=== PATIENT | male | born 1940 | race Hispanic/Latino ===

== ENCOUNTER 2017-06-09 15:37 | Emergency (ER) | payer OTHER, MEDICARE ==
[~2017-06-09] VITALS: Ht 182.9 cm; Wt 147.7 kg
[~2017-06-09 15:37] MED LIST: ASCORBIC ACID500 M3 PO; ASPIR-LOW81 MG PO; CELEBREX200 MG PO; CENTRUM SILVER1 EAC3 PO; COUMADIN1 MG PO; FLEXERIL10 MG PO; FOLIC ACID1 MG PO; GLIMEPIRIDE2 MG PO; IRON325 M1 PO; LIPITOR10 MG PO; LOSARTAN-HCTZ1 EAC1 PO; MECLIZINE HCL25 MG PO; METHOCARBAMOL500 MG PO; NORCO 5/3251 TABLET PO; OXYCODONE HCL5 MG PO; OXYCONTIN10 MG PO; POLYETHYLENE GL17 GM PO; POTASSIUM CITR10 MEQ PO; POTASSIUM CITRA5 MEQ PO; PRIMIDONE250 MG PO; SYNTHROID50 MCG PO; TRAMADOL HCL50 MG PO; VISION VITAMIN1 EAC1 PO; WELCHOL625 MG PO
[2017-06-09 16:47] LABS: POINT-OF-CARE METER ID UU13113747
[2017-06-09 17:54] LABS: EOSINOPHIL COUNT 0.2 K/uL (0-0.3); HEMATOCRIT 38.5 % (38.0-50.0); IMMATURE GRANULOCYTE (%) 0.6 % (0.0-0.7); IMMATURE GRANULOCYTE COUNT 0.1 K/uL; INSTRUMENT ABS NEUTROPHIL CT 7.5 K/uL; LYMPHOCYTE COUNT 1.1 K/uL (1.0-2.8); MCH 31.3 PG (29.0-34.0); MCHC 33.8 G/DL (30.0-36.0); MCV 92.8 FL (86-99); MONOCYTE (%) 6.3 % (3-12); MONOCYTE COUNT 0.6 K/uL (0-0.8); NEUTROPHIL (%) 78.9 % (45-76); NEUTROPHIL COUNT 7.5 K/uL (1.8-6.4); PLATELET COUNT 233 K/uL (156-360); RBC DIS.WIDTH-CV 13.2 % (11.8-14.6); RBC DIS.WIDTH-SD 45.1 % (39-53); RED BLOOD COUNT 4.15 M/uL (4.00-5.50); WHITE BLOOD COUNT 9.5 K/uL (4.1-10.2)
[2017-06-09 18:03] LABS: CHLORIDE 97 mEq/L (99-109); POTASSIUM 4.1 mEq/L (3.7-5.4); SODIUM 137 mEq/L (136-147)
[2017-06-09 18:05] LABS: GLUCOSE 123 mg/dL (70-99)
[2017-06-09 18:06] LABS: ANION GAP 10 MEQ/L (2-14)
[2017-06-09 18:07] LABS: TOTAL BILIRUBIN 0.3 mg/dL (0.0-1.0)
[2017-06-09 18:09] LABS: ALKALINE PHOSPHATASE 120 IU/L (3-129); GFR ESTIMATE (CALCULATED) > 59 mL/min/
[2017-06-09 18:10] LABS: UREA NITROGEN (BUN) 18 mg/dL (9-23)
[2017-06-09 18:12] LABS: CREATINE KINASE 49 IU/L (1-294); TOTAL CK 49 IU/L (1-294)
[2017-06-09 18:26] LABS: CK-MB 0.7 ng/mL (0.0-4.9)
[2017-06-09 19:03] LABS: ADD MIUA? NO; BILIRUBIN NEGATIVE; BLOOD NEGATIVE; COLOR YELLOW ((YELLOW)); GLUCOSE (STRIP) NEGATIVE; KETONES NEGATIVE; LEUKOCYTES NEGATIVE; NITRITE NEGATIVE; PROTEIN (STRIP) 30; SPECIFIC GRAVITY 1.023 (1.000-1.030); UCUL ADDED? NO; UROBILINOGEN 0.2 MG/DL (0.2-1.0)
[2017-06-09 21:55] VITALS: BP 157/69
== END 2017-06-09 21:57 | disposition home or self-care (01) ==
LOC: EME 15:37
PROVIDERS: Emergency Medicine
DX: S40.011A Contusion of right shoulder, initial encounter (principal); M62.81 Muscle weakness (generalized); W18.30XA Fall on same level, unspecified, initial encounter; E11.9 Type 2 diabetes mellitus without complications; I12.9 Hypertensive chronic kidney disease with stage 1 through stage 4 chronic kidney disease, or unspecified chronic kidney disease; N18.9 Chronic kidney disease, unspecified; Z96.652 Presence of left artificial knee joint; Z87.442 Personal history of urinary calculi; Z87.891 Personal history of nicotine dependence
CPT/HCPCS: 70450; 72128; 73030; 80053; 81003; 82550; 82553; 82948; 85025; 99281; 99284

== ENCOUNTER 2017-06-15 00:09 | Observation (INO) | payer OTHER, MEDICARE ==
[~2017-06-15] VITALS: Ht 182.9 cm; Wt 147.2 kg
[2017-06-15 00:34] LABS: MCHC 33.6 G/DL (30.0-36.0); MCV 92.2 FL (86-99); MEAN PLAT.VOLUME 8.5 uM^3 (9.0-12.4); PLATELET COUNT 274 K/uL (156-360); RBC DIS.WIDTH-SD 43.7 % (39-53); RED BLOOD COUNT 4.23 M/uL (4.00-5.50); WHITE BLOOD COUNT 11.6 K/uL (4.1-10.2)
[2017-06-15 00:50] LABS: CHLORIDE 95 mEq/L (99-109); POTASSIUM 3.9 mEq/L (3.7-5.4); SODIUM 137 mEq/L (136-147)
[2017-06-15 00:51] LABS: GLUCOSE 127 mg/dL (70-99)
[2017-06-15 00:53] LABS: ANION GAP 13 MEQ/L (2-14); INTER. NORMALIZED RATIO 1.2; PROTHROMBIN TIME 12.8 SEC (10.2-12.9)
[2017-06-15 00:55] LABS: GFR ESTIMATE (CALCULATED) > 59 mL/min/
[2017-06-15 00:56] LABS: ALKALINE PHOSPHATASE 137 IU/L (3-129); UREA NITROGEN (BUN) 17 mg/dL (9-23)
[2017-06-15 00:58] LABS: DIRECT BILIRUBIN 0.2 mg/dL (0.0-0.3)
[2017-06-15 00:59] LABS: LIPASE 16 U/L (1.0-51.0); TOTAL BILIRUBIN 0.4 mg/dL (0.0-1.0)
[2017-06-15 01:02] LABS: TROP-I INTERPRETATION NEGATIVE; TROPONIN-I < 0.01 ng/mL (0.0-0.30)
[2017-06-15] MEDS ORDERED: ZYLOPRIM100 MG PO (02:07)
[2017-06-15] MEDS ORDERED: LO-DOSE ASPIRIN81 M2 PO (02:07)
[2017-06-15] MEDS ORDERED: ULTRAM50 MG PO (02:08)
[2017-06-15 04:41] VITALS: BP 154/69
[2017-06-15 07:05] LABS: HEMATOCRIT 34.8 % (38.0-50.0); MCH 32.4 PG (29.0-34.0); MCHC 35.1 G/DL (30.0-36.0); MCV 92.6 FL (86-99); MEAN PLAT.VOLUME 8.7 uM^3 (9.0-12.4); PLATELET COUNT 237 K/uL (156-360); RBC DIS.WIDTH-CV 13.2 % (11.8-14.6); RBC DIS.WIDTH-SD 44.6 % (39-53); RED BLOOD COUNT 3.76 M/uL (4.00-5.50); WHITE BLOOD COUNT 10.5 K/uL (4.1-10.2)
[2017-06-15 07:29] LABS: ANION GAP 8 MEQ/L (2-14); CHLORIDE 97 MEQ/L (99-109); GFR ESTIMATE (CALCULATED) > 59 mL/min/; GLUCOSE 136 mg/dL (70-99); POTASSIUM 3.6 MEQ/L (3.7-5.4); SAMPLE HEMOLYSIS CHECK 0; SAMPLE ICTERIC CHECK 0; SAMPLE LIPEMIA CHECK 0; SODIUM 136 MEQ/L (136-147); UREA NITROGEN (BUN) 18 mg/dL (9-23)
[2017-06-15 07:34] LABS: TROP-I INTERPRETATION NEGATIVE; TROPONIN-I 0.02 ng/mL (0.0-0.30)
[2017-06-15 07:45] VITALS: BP 139/78
[2017-06-15 12:13] VITALS: BP 143/78
[2017-06-15 13:00] LABS: TROP-I INTERPRETATION NEGATIVE; TROPONIN-I 0.01 ng/mL (0.0-0.30)
[2017-06-15 16:33] VITALS: BP 136/71
[2017-06-15 19:16] LABS: POINT-OF-CARE METER ID UU13113700
[2017-06-15 21:15] VITALS: BP 140/63
[2017-06-15 21:45] LABS: POINT-OF-CARE METER ID UU14162513
[2017-06-16 00:41] VITALS: BP 153/67
[2017-06-16 03:27] VITALS: BP 151/68
[2017-06-16 07:00] VITALS: BP 180/81
[2017-06-16 08:32] LABS: POINT-OF-CARE METER ID UU13113831
[2017-06-16 12:41] VITALS: BP 161/76
[2017-06-16 13:32] LABS: POINT-OF-CARE METER ID UU13113700
[2017-06-16 16:40] VITALS: BP 148/68
[2017-06-16 17:13] LABS: POINT-OF-CARE METER ID UU13113700
== END 2017-06-16 21:04 | disposition home or self-care (01) ==
LOC: EME → EDBD 00:09 → EME 00:09 → EDOF 01:49 → 5WEST 01:49 → EDOF 01:49 → ENRESERV 01:52 → 5WEST 03:49
PROVIDERS: Internal Medicine
DX: R07.9 Chest pain, unspecified (principal); I48.0 Paroxysmal atrial fibrillation; Z79.82 Long term (current) use of aspirin; R26.2 Difficulty in walking, not elsewhere classified; I12.9 Hypertensive chronic kidney disease with stage 1 through stage 4 chronic kidney disease, or unspecified chronic kidney disease; E11.22 Type 2 diabetes mellitus with diabetic chronic kidney disease; N18.9 Chronic kidney disease, unspecified; E78.5 Hyperlipidemia, unspecified; E03.9 Hypothyroidism, unspecified; Z79.84 Long term (current) use of oral hypoglycemic drugs; Z90.49 Acquired absence of other specified parts of digestive tract; Z96.652 Presence of left artificial knee joint; Z87.891 Personal history of nicotine dependence; F32.9 Major depressive disorder, single episode, unspecified; R53.1 Weakness; R06.02 Shortness of breath; D72.829 Elevated white blood cell count, unspecified; Z63.8 Other specified problems related to primary support group
CPT/HCPCS: 71010; 80048; 80048 91; 80076; 82948; 83690; 83880; 84484; 85027; 85610; 85730; 93005; 94640; 99281; 99285; G0378; G8978 GP CM; G8979 CJ; G8987 CK; G8988 GO CJ; J1644; J7030

== ENCOUNTER 2017-06-19 12:58 | Inpatient (IN) | payer OTHER, MEDICARE ==
[~2017-06-19] VITALS: Ht 182.9 cm; Wt 152.7 kg
[~2017-06-19 12:58] MED LIST changes: +LO-DOSE ASPIRIN81 M2 PO; +ULTRAM50 MG PO; +ZYLOPRIM100 MG PO
[2017-06-19 20:25] LABS: HEMATOCRIT 37.7 % (38.0-50.0); MCH 30.8 PG (29.0-34.0); MCHC 32.6 G/DL (30.0-36.0); MCV 94.3 FL (86-99); MEAN PLAT.VOLUME 8.7 uM^3 (9.0-12.4); PLATELET COUNT 292 K/uL (156-360); RBC DIS.WIDTH-CV 13.2 % (11.8-14.6); RBC DIS.WIDTH-SD 45.6 % (39-53); WHITE BLOOD COUNT 12.2 K/uL (4.1-10.2)
[2017-06-19 20:34] LABS: CHLORIDE 98 mEq/L (99-109); SODIUM 138 mEq/L (136-147)
[2017-06-19 20:36] LABS: GLUCOSE 123 mg/dL (70-99)
[2017-06-19 20:38] LABS: ANION GAP 11 MEQ/L (2-14)
[2017-06-19 20:39] VITALS: BP 140/63
[2017-06-19 20:40] LABS: GFR ESTIMATE (CALCULATED) > 59 mL/min/
[2017-06-19 20:41] LABS: UREA NITROGEN (BUN) 25 mg/dL (9-23)
[2017-06-19 21:47] LABS: POINT-OF-CARE METER ID UU14162513
[2017-06-20 00:12] VITALS: BP 115/62
[2017-06-20 04:33] VITALS: BP 116/65
[2017-06-20 08:11] LABS: POINT-OF-CARE METER ID UU13113831
[2017-06-20 08:16] VITALS: BP 126/62
[2017-06-20 11:27] VITALS: BP 127/56
[2017-06-20 12:58] LABS: POINT-OF-CARE METER ID UU13113700
[2017-06-20 16:10] VITALS: BP 108/58
[2017-06-20 17:34] LABS: POINT-OF-CARE METER ID UU13113831
[2017-06-20 21:48] LABS: POINT-OF-CARE METER ID UU13113700
[2017-06-21] VITALS (8 sets, daily range): BP systolic 113–158; BP diastolic 60–91
[2017-06-21 08:45] LABS: POINT-OF-CARE METER ID UU13113831
[2017-06-21 12:58] LABS: POINT-OF-CARE METER ID UU13113831
[2017-06-21 17:19] LABS: POINT-OF-CARE METER ID UU14188577
[2017-06-21 21:31] LABS: POINT-OF-CARE METER ID UU14188577
[2017-06-22 04:51] VITALS: BP 144/73
[2017-06-22 06:40] LABS: POINT-OF-CARE METER ID UU14208753
[2017-06-22 07:39] VITALS: BP 135/65
[2017-06-22 11:12] LABS: HEMATOCRIT 37.4 % (38.0-50.0); MCH 30.7 PG (29.0-34.0); MCHC 32.9 G/DL (30.0-36.0); MCV 93.3 FL (86-99); MEAN PLAT.VOLUME 8.7 uM^3 (9.0-12.4); PLATELET COUNT 325 K/uL (156-360); RBC DIS.WIDTH-CV 13.1 % (11.8-14.6); RBC DIS.WIDTH-SD 44.9 % (39-53); RED BLOOD COUNT 4.01 M/uL (4.00-5.50); WHITE BLOOD COUNT 9.3 K/uL (4.1-10.2)
[2017-06-22 11:20] LABS: INTER. NORMALIZED RATIO 1.1
[2017-06-22 11:38] LABS: ALKALINE PHOSPHATASE 152 IU/L (3-129); ANION GAP 9 MEQ/L (2-14); CHLORIDE 96 MEQ/L (99-109); GFR ESTIMATE (CALCULATED) > 59 mL/min/; POTASSIUM 4.6 MEQ/L (3.7-5.4); SAMPLE HEMOLYSIS CHECK 0; SAMPLE ICTERIC CHECK 0; SAMPLE LIPEMIA CHECK 0; SODIUM 134 MEQ/L (136-147); TOTAL BILIRUBIN 0.2 MG/DL (0.0-1.0); UREA NITROGEN (BUN) 27 mg/dL (9-23)
[2017-06-22 11:39] LABS: GLUCOSE 193 mg/dL (70-99)
[2017-06-22 16:22] VITALS: BP 137/65
[2017-06-22 16:34] LABS: POINT-OF-CARE METER ID UU14208753
[2017-06-22 23:13] VITALS: BP 127/67
[2017-06-23 06:14] LABS: BASOPHIL COUNT 0.1 K/uL (0-0.1); EOSINOPHIL (%) 2.8 % (0-5); EOSINOPHIL COUNT 0.3 K/uL (0-0.3); HEMATOCRIT 36.9 % (38.0-50.0); IMMATURE GRANULOCYTE (%) 0.5 % (0.0-0.7); IMMATURE GRANULOCYTE COUNT 0.1 K/uL; INSTRUMENT ABS NEUTROPHIL CT 7.2 K/uL; LYMPHOCYTE COUNT 1.3 K/uL (1.0-2.8); MCH 30.6 PG (29.0-34.0); MCHC 32.8 G/DL (30.0-36.0); MCV 93.2 FL (86-99); MONOCYTE (%) 7.4 % (3-12); MONOCYTE COUNT 0.7 K/uL (0-0.8); NEUTROPHIL (%) 75.3 % (45-76); NEUTROPHIL COUNT 7.2 K/uL (1.8-6.4); PLATELET COUNT 321 K/uL (156-360); RBC DIS.WIDTH-CV 13.1 % (11.8-14.6); RBC DIS.WIDTH-SD 45.1 % (39-53); RED BLOOD COUNT 3.96 M/uL (4.00-5.50); WHITE BLOOD COUNT 9.6 K/uL (4.1-10.2)
[2017-06-23 06:21] LABS: POINT-OF-CARE METER ID UU14117124
[2017-06-23 06:28] LABS: INTER. NORMALIZED RATIO 1.2; PROTHROMBIN TIME 13.2 SEC (10.2-12.9)
[2017-06-23 06:34] LABS: ANION GAP 11 MEQ/L (2-14); CHLORIDE 97 MEQ/L (99-109); GFR ESTIMATE (CALCULATED) > 59 mL/min/; GLUCOSE 127 mg/dL (70-99); POTASSIUM 4.5 MEQ/L (3.7-5.4); SAMPLE HEMOLYSIS CHECK 0; SAMPLE ICTERIC CHECK 0; SAMPLE LIPEMIA CHECK 0; SODIUM 135 MEQ/L (136-147); UREA NITROGEN (BUN) 27 mg/dL (9-23)
[2017-06-23 07:16] VITALS: BP 125/76
[2017-06-23 11:19] LABS: POINT-OF-CARE METER ID UU14188577
[2017-06-23 15:47] VITALS: BP 123/60
[2017-06-23 16:29] LABS: POINT-OF-CARE METER ID UU14188577
[2017-06-23 23:50] VITALS: BP 142/77
[2017-06-24 06:58] LABS: INTER. NORMALIZED RATIO 1.2; PROTHROMBIN TIME 13.8 SEC (10.2-12.9)
[2017-06-24 07:26] VITALS: BP 124/60
[2017-06-24 11:18] LABS: POINT-OF-CARE METER ID UU14188577
[2017-06-24] MEDS ORDERED: LOVENOX150 MG/1 M SC (11:36)
[2017-06-24] MEDS ORDERED: COUMADIN5 MG PO (11:37)
[2017-06-24] MEDS ORDERED: ANTIVERT25 MG PO (11:37)
[2017-06-24] MEDS ORDERED: ULTRAM50 MG PO (11:38)
[2017-06-24] MEDS ORDERED: ENDOCET 5-3251 EACH PO (11:38)
[2017-06-24 15:28] VITALS: BP 136/68
[2017-06-24 16:39] LABS: POINT-OF-CARE METER ID UU14188577
[2017-06-24 19:28] VITALS: BP 135/79
== END 2017-06-24 20:15 | DRG 300 ==
LOC: EME 12:58 → EDOF 19:36 → ENRESERV 19:37 → 5WEST 20:26 → 3EAST 06-20 10:29 → 5WEST 06-20 10:29 → CANRESERV 06-21 08:14 → ENRESERV 06-21 08:14 → 3EAST 06-21 14:40
PROVIDERS: Hospitalist
DX: I82.431 Acute embolism and thrombosis of right popliteal vein (principal); I82.441 Acute embolism and thrombosis of right tibial vein; E11.22 Type 2 diabetes mellitus with diabetic chronic kidney disease; N18.9 Chronic kidney disease, unspecified; I12.9 Hypertensive chronic kidney disease with stage 1 through stage 4 chronic kidney disease, or unspecified chronic kidney disease; I48.0 Paroxysmal atrial fibrillation; E78.5 Hyperlipidemia, unspecified; E03.9 Hypothyroidism, unspecified; G89.29 Other chronic pain; M17.11 Unilateral primary osteoarthritis, right knee; G25.0 Essential tremor; K59.09 Other constipation; E66.01 Morbid (severe) obesity due to excess calories; F43.20 Adjustment disorder, unspecified; F32.9 Major depressive disorder, single episode, unspecified; Z68.42 Body mass index [BMI] 45.0-49.9, adult; Z82.49 Family history of ischemic heart disease and other diseases of the circulatory system; Z87.891 Personal history of nicotine dependence; Z96.652 Presence of left artificial knee joint
CPT/HCPCS: 71275; 73564; 80048; 80053; 82607; 82948; 85025; 85027; 85610; 93970; 97530 GP; 99281; 99284; G0378; J1644; J1650; J1815; J1885; J2270

== ENCOUNTER 2017-10-03 12:05 | Inpatient (IN) | payer OTHER, MEDICARE ==
[~2017-10-03] VITALS: Ht 182.9 cm; Wt 149.0 kg
[~2017-10-03 12:05] MED LIST changes: +ANTIVERT25 MG PO; +COUMADIN5 MG PO; +ENDOCET 5-3251 EACH PO; +LOVENOX150 MG/1 M SC
[2017-10-03 14:33] LABS: HEMATOCRIT 41.2 % (38.0-50.0); HEMOGLOBIN 13.7 G/DL (12.5-16.6); MCH 31.6 PG (29.0-34.0); MCHC 33.3 G/DL (30.0-36.0); MCV 95.2 FL (86-99); PLATELET COUNT 242 K/uL (156-360); RBC DIS.WIDTH-CV 13.9 % (11.8-14.6); RBC DIS.WIDTH-SD 48.7 % (39-53); RED BLOOD COUNT 4.33 M/uL (4.00-5.50); WHITE BLOOD COUNT 15.8 K/uL (4.1-10.2)
[2017-10-03 14:43] LABS: ALBUMIN 3.5 g/dL (3.2-4.8); CHLORIDE 99 mEq/L (99-109); POTASSIUM 4.1 mEq/L (3.7-5.4); SODIUM 139 mEq/L (136-147)
[2017-10-03 14:45] LABS: GLUCOSE 142 mg/dL (70-99)
[2017-10-03 14:47] LABS: TOTAL BILIRUBIN 0.5 mg/dL (0.0-1.0)
[2017-10-03 14:49] LABS: ALKALINE PHOSPHATASE 102 IU/L (3-129); CREATININE 0.8 mg/dL (0.6-1.3); GFR ESTIMATE (CALCULATED) > 59 mL/min/ (58.99-99999)
[2017-10-03 14:50] LABS: UREA NITROGEN (BUN) 20 mg/dL (9-23)
[2017-10-03 14:51] LABS: AST (GOT) 18 IU/L (2-34)
[2017-10-03 14:52] LABS: ALT (GPT) 37 IU/L (3-49); CREATINE KINASE 97 IU/L (1-294)
[2017-10-03 14:55] LABS: TROP-I INTERPRETATION NEGATIVE; TROPONIN-I 0.01 ng/mL (0.0-0.30)
[2017-10-03 20:25] LABS: C-REACTIVE PROTEIN 142.7 MG/L (0-10)
[2017-10-03 21:45] VITALS: BP 178/89
[2017-10-04 00:05] VITALS: BP 143/64
[2017-10-04 03:55] VITALS: BP 135/74
[2017-10-04 05:25] LABS: APPEARANCE CLEAR ((CLEAR)); BILIRUBIN NEGATIVE; BLOOD SMALL; COLOR YELLOW ((YELLOW)); GLUCOSE (STRIP) NEGATIVE; KETONES NEGATIVE; LEUKOCYTES NEGATIVE; NITRITE NEGATIVE; PROTEIN (STRIP) NEGATIVE; SPECIFIC GRAVITY 1.026 (1.000-1.030); UROBILINOGEN 0.2 MG/DL (0.2-1.0)
[2017-10-04 05:27] LABS: BACTERIA NONE SEEN /HPF; EPITHELIAL CELLS RARE /HPF; MUCUS TRACE /LPF; RED BLOOD CELLS 0-5 /HPF (0-5); WHITE BLOOD CELLS 0-5 /HPF (0-5)
[2017-10-04 06:49] LABS: BASOPHIL (%) 0.4 % (0-1); BASOPHIL COUNT 0.1 K/uL (0-0.1); EOSINOPHIL (%) 2.2 % (0-5); EOSINOPHIL COUNT 0.3 K/uL (0-0.3); HEMATOCRIT 38.4 % (38.0-50.0); HEMOGLOBIN 12.4 G/DL (12.5-16.6); IMMATURE GRANULOCYTE (%) 0.7 % (0.0-0.7); LYMPHOCYTE (%) 10.6 % (15-42); LYMPHOCYTE COUNT 1.3 K/uL (1.0-2.8); MCH 30.8 PG (29.0-34.0); MCHC 32.3 G/DL (30.0-36.0); MCV 95.5 FL (86-99); MONOCYTE COUNT 1.1 K/uL (0-0.8); NEUTROPHIL (%) 77.1 % (45-76); NEUTROPHIL COUNT 9.5 K/uL (1.8-6.4); PLATELET COUNT 247 K/uL (156-360); RBC DIS.WIDTH-CV 13.9 % (11.8-14.6); RBC DIS.WIDTH-SD 49.1 % (39-53); RED BLOOD COUNT 4.02 M/uL (4.00-5.50); WHITE BLOOD COUNT 12.3 K/uL (4.1-10.2)
[2017-10-04 07:15] LABS: CHLORIDE 101 MEQ/L (99-109); CREATININE 0.9 MG/DL (0.6-1.3); GFR ESTIMATE (CALCULATED) > 59 mL/min/ (58.99-99999); GLUCOSE 143 mg/dL (70-99); POTASSIUM 3.9 MEQ/L (3.7-5.4); SODIUM 140 MEQ/L (136-147); UREA NITROGEN (BUN) 20 mg/dL (9-23)
[2017-10-04 07:55] VITALS: BP 140/70
[2017-10-04 10:28] LABS: INTER. NORMALIZED RATIO 1.3
[2017-10-04 11:48] VITALS: BP 144/81
[2017-10-04 16:14] VITALS: BP 147/75
[2017-10-04 19:09] LABS: APPEARANCE CLOUDY-BLOODY; MONONUCLEAR WBC'S 16 %; POLYNUCLEAR WBC'S 84 % (0-25); RED CELL COUNT 133000 /MM^3 (0-1); SYNOVIAL FLUID EOSINOPHILS 0 % (0-25); WHITE CELL COUNT 12456 /MM^3 (0-200.0)
[2017-10-04 19:38] VITALS: BP 164/76
[2017-10-05 00:29] VITALS: BP 144/68
[2017-10-05 03:34] VITALS: BP 140/66
[2017-10-05 06:33] LABS: HEMOGLOBIN 11.7 G/DL (12.5-16.6); MCH 31.6 PG (29.0-34.0); MCHC 32.5 G/DL (30.0-36.0); MCV 97.3 FL (86-99); PLATELET COUNT 211 K/uL (156-360); RBC DIS.WIDTH-CV 13.8 % (11.8-14.6); RBC DIS.WIDTH-SD 49.5 % (39-53); WHITE BLOOD COUNT 10.5 K/uL (4.1-10.2)
[2017-10-05 06:35] LABS: INTER. NORMALIZED RATIO 1.3
[2017-10-05 06:57] LABS: CHLORIDE 101 MEQ/L (99-109); CREATININE 0.8 MG/DL (0.6-1.3); GFR ESTIMATE (CALCULATED) > 59 mL/min/ (58.99-99999); GLUCOSE 125 mg/dL (70-99); SODIUM 138 MEQ/L (136-147); UREA NITROGEN (BUN) 23 mg/dL (9-23)
[2017-10-05 06:59] LABS: CRYSTALS NO CRYSTALS SEEN
[2017-10-05 08:14] VITALS: BP 143/67
[2017-10-05 12:10] VITALS: BP 153/70
[2017-10-05] MEDS ORDERED: AMITIZA24 MICROGR PO (14:03)
[2017-10-05] MEDS ORDERED: ELIQUIS5 MG PO (14:04)
[2017-10-05] MEDS ORDERED: SKIN TREATMENT225 GM TP (14:05)
[2017-10-05] MEDS ORDERED: LASIX20 MG PO (14:06)
[2017-10-05] MEDS ORDERED: MIRALAX17 GM PO (14:07)
[2017-10-05] MEDS ORDERED: LIDOCARE1 EACH TP (14:07)
[2017-10-05] MEDS ORDERED: ZANTAC75 M1 PO (14:08)
[2017-10-05] MEDS ORDERED: WELLBUTRIN75 MG PO (14:09)
[2017-10-05] MEDS ORDERED: SENNA PLUS TAB1 EACH PO (14:09)
[2017-10-05 15:58] VITALS: BP 127/74
[2017-10-05 20:24] VITALS: BP 148/71
[2017-10-06] VITALS (7 sets, daily range): BP systolic 129–163; BP diastolic 69–78
[2017-10-06 06:50] LABS: HEMATOCRIT 36.6 % (38.0-50.0); HEMOGLOBIN 11.8 G/DL (12.5-16.6); MCH 30.8 PG (29.0-34.0); MCHC 32.2 G/DL (30.0-36.0); MCV 95.6 FL (86-99); PLATELET COUNT 209 K/uL (156-360); RBC DIS.WIDTH-CV 13.3 % (11.8-14.6); RBC DIS.WIDTH-SD 47.3 % (39-53); RED BLOOD COUNT 3.83 M/uL (4.00-5.50); WHITE BLOOD COUNT 9.1 K/uL (4.1-10.2)
[2017-10-06 06:57] LABS: INTER. NORMALIZED RATIO 1.3
[2017-10-06] MEDS ORDERED: ELIQUIS5 MG PO (09:07)
[2017-10-07 04:29] VITALS: BP 144/71
[2017-10-07 07:55] VITALS: BP 153/89
[2017-10-07 12:04] VITALS: BP 148/85
[2017-10-07 16:44] VITALS: BP 138/74
[2017-10-07 19:19] VITALS: BP 134/73
[2017-10-08] VITALS (7 sets, daily range): BP systolic 124–169; BP diastolic 68–87
[2017-10-09 04:42] VITALS: BP 142/80
[2017-10-09 07:19] VITALS: BP 173/84
[2017-10-09 12:56] VITALS: BP 160/80
[2017-10-09 16:13] VITALS: BP 141/69
[2017-10-09 19:53] VITALS: BP 135/74
[2017-10-09 23:28] VITALS: BP 155/71
[2017-10-10 03:31] VITALS: BP 145/69
[2017-10-10 07:02] VITALS: BP 132/70
[2017-10-10 15:02] VITALS: BP 144/81
[2017-10-11 00:19] VITALS: BP 140/67
[2017-10-11 07:31] VITALS: BP 157/86
[2017-10-11 17:23] VITALS: BP 148/66
[2017-10-11 23:32] VITALS: BP 132/77
[2017-10-12 07:37] VITALS: BP 145/68
== END 2017-10-12 15:20 | disposition home health service (06) | DRG 603 ==
LOC: EME 12:05 → 5SOUTH 18:48 → EDOF 18:48 → ENRESERV 18:49 → 5SOUTH 21:14 → ENPENDDIS 10-12 → 5SOUTH 10-12 15:20
PROVIDERS: Emergency Medicine; Hospitalist; Internal Medicine; Nurse Practitioner Adult Health; Orthopaedic Surgery Sports Medicine; Physician Assistant Medical
PROC: 0S9C3ZX Drainage of Right Knee Joint, Percutaneous Approach, Diagnostic (ICD-10-PCS; principal; 2017-10-04)
DX: L03.115 Cellulitis of right lower limb (principal); M25.061 Hemarthrosis, right knee; L03.116 Cellulitis of left lower limb; L89.319 Pressure ulcer of right buttock, unspecified stage; M17.0 Bilateral primary osteoarthritis of knee; I89.0 Lymphedema, not elsewhere classified; Z68.41 Body mass index [BMI] 40.0-44.9, adult; N18.1 Chronic kidney disease, stage 1; L97.529 Non-pressure chronic ulcer of other part of left foot with unspecified severity; E66.01 Morbid (severe) obesity due to excess calories; E11.621 Type 2 diabetes mellitus with foot ulcer; I12.9 Hypertensive chronic kidney disease with stage 1 through stage 4 chronic kidney disease, or unspecified chronic kidney disease; E03.9 Hypothyroidism, unspecified; E78.5 Hyperlipidemia, unspecified; I48.92 Unspecified atrial flutter; E11.22 Type 2 diabetes mellitus with diabetic chronic kidney disease; I87.2 Venous insufficiency (chronic) (peripheral); E78.00 Pure hypercholesterolemia, unspecified; M10.9 Gout, unspecified; G25.0 Essential tremor; Z79.01 Long term (current) use of anticoagulants; Z90.49 Acquired absence of other specified parts of digestive tract; Z96.652 Presence of left artificial knee joint; Z86.718 Personal history of other venous thrombosis and embolism; Z91.19 Patient's noncompliance with other medical treatment and regimen; Z79.84 Long term (current) use of oral hypoglycemic drugs; G89.29 Other chronic pain; Z87.891 Personal history of nicotine dependence; Z87.442 Personal history of urinary calculi; Z82.49 Family history of ischemic heart disease and other diseases of the circulatory system; Z81.1 Family history of alcohol abuse and dependence
CPT/HCPCS: 73560; 73700; 80048; 80053; 81003; 82550; 82948; 83036; 84484; 84550; 85025; 85027; 85610; 85651; 86140; 87040; 87070; 87075; 87205; 89051; 89060; 90686; 93970; 94799; 99281; 99285; J0690; J1650; J1815; J2405; J2543; J3010; J3370; J7060

== ENCOUNTER 2017-10-15 13:09 | Observation (INO) | payer OTHER, MEDICARE ==
[~2017-10-15] VITALS: Ht 182.9 cm; Wt 147.4 kg
[~2017-10-15 13:09] MED LIST changes: +AMITIZA24 MICROGR PO; +ELIQUIS5 MG PO; +LASIX20 MG PO; +LIDOCARE1 EACH TP; +MIRALAX17 GM PO; +SENNA PLUS TAB1 EACH PO; +SKIN TREATMENT225 GM TP; +WELLBUTRIN75 MG PO; +ZANTAC75 M1 PO
[2017-10-15 19:26] LABS: HEMATOCRIT 39.1 % (38.0-50.0); HEMOGLOBIN 12.8 G/DL (12.5-16.6); MCH 31.3 PG (29.0-34.0); MCHC 32.7 G/DL (30.0-36.0); MCV 95.6 FL (86-99); PLATELET COUNT 239 K/uL (156-360); RBC DIS.WIDTH-CV 13.1 % (11.8-14.6); RBC DIS.WIDTH-SD 46.1 % (39-53); RED BLOOD COUNT 4.09 M/uL (4.00-5.50); WHITE BLOOD COUNT 12.6 K/uL (4.1-10.2)
[2017-10-15 19:37] LABS: CHLORIDE 104 mEq/L (99-109); POTASSIUM 4.3 mEq/L (3.7-5.4); SODIUM 137 mEq/L (136-147)
[2017-10-15] MEDS ORDERED: ENDOCET 5-3251 EACH PO (19:37)
[2017-10-15 19:39] LABS: GLUCOSE 91 mg/dL (70-99)
[2017-10-15 19:43] LABS: CREATININE 0.8 mg/dL (0.6-1.3); GFR ESTIMATE (CALCULATED) > 59 mL/min/ (58.99-99999)
[2017-10-15 19:44] LABS: UREA NITROGEN (BUN) 20 mg/dL (9-23)
[2017-10-15 22:07] LABS: APPEARANCE CLEAR ((CLEAR)); BILIRUBIN NEGATIVE; BLOOD NEGATIVE; COLOR YELLOW ((YELLOW)); GLUCOSE (STRIP) NEGATIVE; KETONES NEGATIVE; LEUKOCYTES NEGATIVE; NITRITE NEGATIVE; PROTEIN (STRIP) NEGATIVE; SPECIFIC GRAVITY 1.025 (1.000-1.030); UCUL ADDED? NO; UROBILINOGEN 0.2 MG/DL (0.2-1.0)
[2017-10-15 22:23] VITALS: BP 167/78
[2017-10-16 08:17] VITALS: BP 177/86
[2017-10-16 11:46] VITALS: BP 140/76
[2017-10-16 15:13] VITALS: BP 129/75
[2017-10-16 15:57] LABS: INTER. NORMALIZED RATIO 1.2
[2017-10-16 19:45] VITALS: BP 124/67
[2017-10-17 00:43] VITALS: BP 116/57
[2017-10-17 06:31] LABS: INTER. NORMALIZED RATIO 1.1
[2017-10-17 08:00] VITALS: BP 131/63
[2017-10-17] MEDS ORDERED: DOCUSATE SODIU100 MG PO (09:41)
[2017-10-17] MEDS ORDERED: LOVENOX150 MG/1 M SC (09:42)
[2017-10-17 11:25] VITALS: BP 135/74
[2017-10-17 15:17] VITALS: BP 130/63
[2017-10-17 19:22] VITALS: BP 128/63
[2017-10-18 00:16] VITALS: BP 118/56
[2017-10-18 05:20] LABS: INTER. NORMALIZED RATIO 1.2
[2017-10-18 08:00] VITALS: BP 132/65
[2017-10-18 11:20] VITALS: BP 143/68
[2017-10-18] MEDS ORDERED: COUMADIN5 MG PO (15:21)
== END 2017-10-18 18:56 ==
LOC: EME 13:09 → EDOF 20:18 → 5WEST 20:18 → EDOF 20:18 → ENRESERV 20:35 → 5WEST 22:08 → ENPENDDIS 10-18 → 5WEST 10-18 18:56
PROVIDERS: Emergency Medicine; Internal Medicine
DX: G89.29 Other chronic pain (principal); M17.11 Unilateral primary osteoarthritis, right knee; R26.89 Other abnormalities of gait and mobility; Z74.01 Bed confinement status; E66.01 Morbid (severe) obesity due to excess calories; I48.92 Unspecified atrial flutter; Z86.718 Personal history of other venous thrombosis and embolism; Z79.01 Long term (current) use of anticoagulants; Z91.14 Patient's other noncompliance with medication regimen; Z91.19 Patient's noncompliance with other medical treatment and regimen; Z86.19 Personal history of other infectious and parasitic diseases; M10.9 Gout, unspecified; I10 Essential (primary) hypertension; E78.5 Hyperlipidemia, unspecified; E03.9 Hypothyroidism, unspecified; E11.9 Type 2 diabetes mellitus without complications; Z96.652 Presence of left artificial knee joint; Z90.49 Acquired absence of other specified parts of digestive tract; Z87.891 Personal history of nicotine dependence
CPT/HCPCS: 73560; 80048; 81003; 85027; 85610; 85651; 86140; 97530 GP; 99281; 99285; G0378; G8978 GP CM; G8979 GP CL; G8980 GP CM; G8987 GO CM; G8988 GO CL; G8989 GO CM; J1644; J1650; J2270

== ENCOUNTER 2017-11-08 17:57 | Emergency (ER) | payer OTHER, MEDICARE ==
[~2017-11-08] VITALS: Ht 182.9 cm; Wt 144.8 kg
[~2017-11-08 17:57] MED LIST changes: +DOCUSATE SODIU100 MG PO
[2017-11-08] MEDS ORDERED: NORCO 5/3251 TABLET PO (19:01)
[2017-11-08 22:20] VITALS: BP 132/74
== END 2017-11-08 22:22 | disposition home or self-care (01) ==
LOC: EME 17:57
DX: E11.40 Type 2 diabetes mellitus with diabetic neuropathy, unspecified (principal); M79.604 Pain in right leg; I87.2 Venous insufficiency (chronic) (peripheral); E11.22 Type 2 diabetes mellitus with diabetic chronic kidney disease; I12.9 Hypertensive chronic kidney disease with stage 1 through stage 4 chronic kidney disease, or unspecified chronic kidney disease; N18.9 Chronic kidney disease, unspecified; F32.9 Major depressive disorder, single episode, unspecified; F41.9 Anxiety disorder, unspecified; Z87.891 Personal history of nicotine dependence; Z87.442 Personal history of urinary calculi; Z96.653 Presence of artificial knee joint, bilateral; Z90.49 Acquired absence of other specified parts of digestive tract; Z79.84 Long term (current) use of oral hypoglycemic drugs; Z79.82 Long term (current) use of aspirin
CPT/HCPCS: 93971

== ENCOUNTER 2017-11-22 11:43 | Emergency (ER) | payer OTHER, MEDICARE ==
[~2017-11-22] VITALS: Ht 182.9 cm; Wt 143.0 kg
[2017-11-22 12:58] LABS: BASOPHIL (%) 0.3 % (0-1); BASOPHIL COUNT 0.1 K/uL (0-0.1); EOSINOPHIL (%) 1.5 % (0-5); EOSINOPHIL COUNT 0.2 K/uL (0-0.3); HEMOGLOBIN 13.3 G/DL (12.5-16.6); IMMATURE GRANULOCYTE (%) 0.7 % (0.0-0.7); LYMPHOCYTE (%) 6.3 % (15-42); LYMPHOCYTE COUNT 0.9 K/uL (1.0-2.8); MCHC 33.3 G/DL (30.0-36.0); MCV 93.2 FL (86-99); MONOCYTE (%) 6.2 % (3-12); MONOCYTE COUNT 0.9 K/uL (0-0.8); NEUTROPHIL COUNT 12.5 K/uL (1.8-6.4); PLATELET COUNT 233 K/uL (156-360); RBC DIS.WIDTH-CV 13.5 % (11.8-14.6); RBC DIS.WIDTH-SD 46.4 % (39-53); RED BLOOD COUNT 4.29 M/uL (4.00-5.50); WHITE BLOOD COUNT 14.7 K/uL (4.1-10.2)
[2017-11-22 13:12] LABS: ALBUMIN 3.9 g/dL (3.2-4.8); CHLORIDE 96 mEq/L (99-109); SODIUM 135 mEq/L (136-147)
[2017-11-22 13:14] LABS: GLUCOSE 112 mg/dL (70-99)
[2017-11-22 13:16] LABS: TOTAL BILIRUBIN 0.3 mg/dL (0.0-1.0)
[2017-11-22 13:18] LABS: ALKALINE PHOSPHATASE 139 IU/L (3-129); CREATININE 0.8 mg/dL (0.6-1.3); GFR ESTIMATE (CALCULATED) > 59 mL/min/ (58.99-99999)
[2017-11-22 13:19] LABS: UREA NITROGEN (BUN) 21 mg/dL (9-23)
[2017-11-22 13:20] LABS: AST (GOT) 21 IU/L (2-34)
[2017-11-22 13:21] LABS: ALT (GPT) 41 IU/L (3-49); LIPASE 248 U/L (1.0-51.0)
[2017-11-22 14:54] LABS: APPEARANCE CLEAR ((CLEAR)); BILIRUBIN NEGATIVE; BLOOD SMALL; COLOR STRAW ((YELLOW)); GLUCOSE (STRIP) NEGATIVE; KETONES NEGATIVE; LEUKOCYTES NEGATIVE; NITRITE NEGATIVE; PROTEIN (STRIP) NEGATIVE; UROBILINOGEN 0.2 MG/DL (0.2-1.0)
[2017-11-22 14:58] LABS: BACTERIA NONE SEEN /HPF; EPITHELIAL CELLS RARE /HPF; MUCUS TRACE /LPF; RED BLOOD CELLS 0-5 /HPF (0-5); UCUL ADDED? NO; WHITE BLOOD CELLS 0-5 /HPF (0-5)
[2017-11-22 15:13] LABS: SPECIFIC GRAVITY 1.062 (1.000-1.030)
[2017-11-22] MEDS ORDERED: LORTAB 5-325 M1 EACH PO (15:18)
[2017-11-22 20:49] VITALS: BP 119/62
== END 2017-11-22 20:50 | disposition home or self-care (01) ==
LOC: EME 11:43
PROVIDERS: Emergency Medicine
DX: R10.31 Right lower quadrant pain (principal); E11.65 Type 2 diabetes mellitus with hyperglycemia; N28.89 Other specified disorders of kidney and ureter; I12.9 Hypertensive chronic kidney disease with stage 1 through stage 4 chronic kidney disease, or unspecified chronic kidney disease; E11.22 Type 2 diabetes mellitus with diabetic chronic kidney disease; N18.9 Chronic kidney disease, unspecified; F32.9 Major depressive disorder, single episode, unspecified; F41.9 Anxiety disorder, unspecified; Z96.652 Presence of left artificial knee joint; Z79.82 Long term (current) use of aspirin; Z87.891 Personal history of nicotine dependence; Z87.442 Personal history of urinary calculi; Z90.49 Acquired absence of other specified parts of digestive tract
CPT/HCPCS: 74177; 80053; 81003; 82948; 83605; 83690; 85025; 99281; 99285; J2405; J3010; J7030

== ENCOUNTER 2017-11-27 15:01 | Emergency (ER) | payer OTHER, MEDICARE ==
[~2017-11-27] VITALS: Ht 182.9 cm; Wt 144.5 kg
[~2017-11-27 15:01] MED LIST changes: +LORTAB 5-325 M1 EACH PO
[2017-11-27 15:49] LABS: BASOPHIL (%) 0.2 % (0-1); EOSINOPHIL (%) 1.4 % (0-5); EOSINOPHIL COUNT 0.2 K/uL (0-0.3); IMMATURE GRANULOCYTE (%) 0.7 % (0.0-0.7); LYMPHOCYTE (%) 6.5 % (15-42); LYMPHOCYTE COUNT 0.9 K/uL (1.0-2.8); MCH 30.7 PG (29.0-34.0); MCHC 33.3 G/DL (30.0-36.0); MCV 92.2 FL (86-99); MONOCYTE (%) 4.9 % (3-12); MONOCYTE COUNT 0.6 K/uL (0-0.8); NEUTROPHIL (%) 86.3 % (45-76); NEUTROPHIL COUNT 11.3 K/uL (1.8-6.4); PLATELET COUNT 272 K/uL (156-360); RBC DIS.WIDTH-CV 13.2 % (11.8-14.6); RBC DIS.WIDTH-SD 44.8 % (39-53); RED BLOOD COUNT 4.23 M/uL (4.00-5.50); WHITE BLOOD COUNT 13.1 K/uL (4.1-10.2)
[2017-11-27 15:54] LABS: INTER. NORMALIZED RATIO 1.1
[2017-11-27 15:57] LABS: ALBUMIN 3.5 g/dL (3.2-4.8); CHLORIDE 95 mEq/L (99-109); POTASSIUM 3.9 mEq/L (3.7-5.4); PTT 26.5 SEC (25-37); SODIUM 134 mEq/L (136-147)
[2017-11-27 16:00] LABS: GLUCOSE 219 mg/dL (70-99); TOTAL PROTEIN 6.8 g/dL (6.4-8.3)
[2017-11-27 16:03] LABS: ALKALINE PHOSPHATASE 140 IU/L (3-129); CREATININE 0.9 mg/dL (0.6-1.3); GFR ESTIMATE (CALCULATED) > 59 mL/min/ (58.99-99999); TOTAL BILIRUBIN 0.2 mg/dL (0.0-1.0)
[2017-11-27 16:04] LABS: UREA NITROGEN (BUN) 21 mg/dL (9-23)
[2017-11-27 16:05] LABS: AST (GOT) 29 IU/L (2-34); DIRECT BILIRUBIN 0.1 mg/dL (0.0-0.3)
[2017-11-27 16:06] LABS: ALT (GPT) 60 IU/L (3-49)
[2017-11-27 16:07] LABS: LIPASE 31 U/L (1.0-51.0)
[2017-11-27 17:43] LABS: APPEARANCE CLEAR ((CLEAR)); BILIRUBIN NEGATIVE; BLOOD SMALL; COLOR YELLOW ((YELLOW)); GLUCOSE (STRIP) NEGATIVE; KETONES NEGATIVE; LEUKOCYTES NEGATIVE; NITRITE NEGATIVE; PROTEIN (STRIP) NEGATIVE; SPECIFIC GRAVITY 1.025 (1.000-1.030); UROBILINOGEN 0.2 MG/DL (0.2-1.0)
[2017-11-27 17:47] LABS: BACTERIA NONE SEEN /HPF; EPITHELIAL CELLS RARE /HPF; MUCUS TRACE /LPF; RED BLOOD CELLS 0-5 /HPF (0-5); WHITE BLOOD CELLS 0-5 /HPF (0-5)
[2017-11-27] MEDS ORDERED: NORCO 5/3251 TABLET PO (19:56)
[2017-11-27] MEDS ORDERED: MOTRIN600 MG PO (19:56)
[2017-11-27 21:50] VITALS: BP 116/67
== END 2017-11-27 21:57 | disposition home or self-care (01) ==
LOC: EME 15:01
PROVIDERS: Physician Assistant
DX: G89.29 Other chronic pain (principal); M25.511 Pain in right shoulder; M12.811 Other specific arthropathies, not elsewhere classified, right shoulder; M75.101 Unspecified rotator cuff tear or rupture of right shoulder, not specified as traumatic; I12.9 Hypertensive chronic kidney disease with stage 1 through stage 4 chronic kidney disease, or unspecified chronic kidney disease; E11.22 Type 2 diabetes mellitus with diabetic chronic kidney disease; N18.9 Chronic kidney disease, unspecified; F32.9 Major depressive disorder, single episode, unspecified; F41.9 Anxiety disorder, unspecified; Z96.652 Presence of left artificial knee joint; Z87.891 Personal history of nicotine dependence
CPT/HCPCS: 73030; 80048; 80076; 81003; 83690; 85025; 85610; 85730; 99281; 99285; J3010; J7030

== ENCOUNTER 2018-02-24 14:10 | Emergency (ER) | payer OTHER, MEDICARE ==
[~2018-02-24] VITALS: Ht 182.9 cm; Wt 148.6 kg
[~2018-02-24 14:10] MED LIST changes: +MOTRIN600 MG PO
[2018-02-24 15:10] LABS: HEMATOCRIT 36.5 % (38.0-50.0); HEMOGLOBIN 12.2 G/DL (12.5-16.6); MCH 30.9 PG (29.0-34.0); MCHC 33.4 G/DL (30.0-36.0); MCV 92.4 FL (86-99); PLATELET COUNT 222 K/uL (156-360); RBC DIS.WIDTH-CV 14.6 % (11.8-14.6); RBC DIS.WIDTH-SD 49.5 % (39-53); RED BLOOD COUNT 3.95 M/uL (4.00-5.50); WHITE BLOOD COUNT 10.6 K/uL (4.1-10.2)
[2018-02-24 15:20] LABS: CHLORIDE 96 mEq/L (99-109); POTASSIUM 4.1 mEq/L (3.7-5.4); SODIUM 137 mEq/L (136-147)
[2018-02-24 15:22] LABS: GLUCOSE 136 mg/dL (70-99)
[2018-02-24 15:26] LABS: CREATININE 0.7 mg/dL (0.6-1.3); GFR ESTIMATE (CALCULATED) > 59 mL/min/ (58.99-99999)
[2018-02-24 15:27] LABS: UREA NITROGEN (BUN) 23 mg/dL (9-23)
[2018-02-24 15:49] LABS: C-REACTIVE PROTEIN 69.5 MG/L (0-10)
[2018-02-24 17:50] LABS: ERTH.SED.RATE 42 MM/HR (0-20)
[2018-02-24 18:00] VITALS: BP 115/65
== END 2018-02-24 20:22 ==
LOC: EME 14:10
PROVIDERS: Emergency Medicine
DX: G93.0 Cerebral cysts (principal); M25.741 Osteophyte, right hand; M19.90 Unspecified osteoarthritis, unspecified site; M25.531 Pain in right wrist; M79.644 Pain in right finger(s); M25.521 Pain in right elbow; W18.30XA Fall on same level, unspecified, initial encounter; I12.9 Hypertensive chronic kidney disease with stage 1 through stage 4 chronic kidney disease, or unspecified chronic kidney disease; E11.22 Type 2 diabetes mellitus with diabetic chronic kidney disease; N18.9 Chronic kidney disease, unspecified; Z79.84 Long term (current) use of oral hypoglycemic drugs; Z79.82 Long term (current) use of aspirin; Z96.652 Presence of left artificial knee joint; Z87.891 Personal history of nicotine dependence
CPT/HCPCS: 70450; 73030; 73070; 73090; 73110; 73130; 80048; 85027; 85651; 86140; 93971